=== PATIENT | female | born 1960 | race Hispanic/Latino ===

== ENCOUNTER 2017-03-11 07:04 | Outpatient (CLI) | payer BC ==
--- NOTE | 2017-03-11 14:11 | Magnetic Resonance Report ---
MRI UPPER EXTREMITY JOINT LEFT WITHOUT CONTRAST History: Left shoulder pain. Technique: Multisequence, multiplanar MRI without contrast. Comparison: No relevant comparisons at this facility. Findings: There is focal thickening and increased signal in the distal, anterior supraspinatus tendon. Moderate tendinosis is suspected. There also appears to be a focal full thickness defect in the distal anterior supraspinatus tendon measuring less than 5 mm. There is mild thickening and increased signal in the supraspinatus tendon consistent with tendinosis. The infraspinatus and teres minor tendons are unremarkable. The biceps tendon and its anchor upon the superior labrum are within normal limits. Mild osteoarthritic changes are identified at the a.c. joint and glenohumeral joint. No evidence for fracture, dislocation or bone lesion. There is no gross labral defect. There is a small amount of fluid in the subacromial and sub-deltoid bursa. Impression: Supraspinatus and subscapularis tendinopathy as outlined above. There may be a small full thickness tear in the distal supraspinatus tendon as well. MR arthrogram could provide additional information if needed. Small fluid in the subacromial and subdeltoid bursa. Mild osteoarthritis.
== END 2017-03-11 07:05 | disposition home or self-care (01) ==
LOC: MRI 07:04
PROVIDERS: ATTEND Orthopaedic Surgery
DX: M19.012 Primary osteoarthritis, left shoulder (principal)